=== PATIENT | female | born 1995 | race Caucasian/White ===

== ENCOUNTER 2021-01-25 07:13 | Emergency (ER) | payer BC ==
--- OUTSIDE RECORDS SUMMARY | 2021-01-25 07:18 | XMS REPORT | Continuity of Care Document ---
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 x 2.9 x 4.9 cm. The endometrial cavity is empty with a thickness of 2 mm. No uterine fibroids were seen. Nabothian cyst noted. The right ovary measures 3.5 x 2.2 x 1.7 cm and contains small follicles. Doppler flow demonstrated in the right ovary. Largest follicle measured 9 mm. The left ovary measures 4.0 x 1.9 x 1.4 cm and contains small follicles. Doppler flow demonstrated in the left ovary. Small amount of free pelvic fluid noted. IMPRESSION: Small amount of free pelvic fluid, otherwise negative pelvic sonogram. at 1015 Reported and signed by: Chidi Figueroa MD CC: John Perez MD Technologist: Dariana Simon RDUT Probe: [id number] Trnscrbd D/ (1015) [email or web address] Orig Print D/T: S: 11/15/2020 (1019) [facility] NAME: RYAN ESTRADA Radiology Department PHYS: RUDY. John Perez MD [address] : 1995 AGE: 25 SEX: F [place] [address] LOC: F.RAD PHONE #: [phone] EXAM DATE: 11/15/2020 STATUS: REG CLI FAX #: [phone] RAD NO: Page 1 Signed Report Patient Name: RYAN ESTRADA Unit No: [id number] EXAMS: CPT CODE: [id number] US TRANSVAGINAL W/PELVIS 15113 <Continued> [facility] NAME: RYAN ESTRADA Radiology Department PHYS: RUDY. John Perez MD [address] : 1995 AGE: 25 SEX: F [place] [address] LOC: F.RAD PHONE #: [phone] EXAM DATE: 11/15/2020 STATUS: REG CLI FAX #: [phone] RAD NO: Page 2 Signed Report - DUP AB/PEL/SC/LTD 2020-11-15 10:15:00 [facility] 1995 Sex: F * Patient Name: RYAN ESTRADA Unit No: [id number] EXAMS: CPT CODE: [id number] DUP AB/PEL/SC/LTD 91193 PELVIC ULTRASOUND, 11/15/2020: COMPARISON: Prior pelvic ultrasound dated September 20182020 CLINICAL HISTORY: OV CYST, PEL PAIN TECHNIQUE: Transabdominal and endovaginal scanning was performed. FINDINGS: The uterus measures 8.2 x 2.9 x 4.9 cm. The endometrial cavity is empty with a thickness of 2 mm. No uterine fibroids were seen. Nabothian cyst noted. The right ovary measures 3.5 x 2.2 x 1.7 cm and contains small follicles. Doppler flow demonstrated in the right ovary. Largest follicle measured 9 mm. The left ovary measures 4.0 x 1.9 x 1.4 cm and contains small follicles. Doppler flow demonstrated in the left ovary. Small amount of free pelvic fluid noted. IMPRESSION: Small amount of free pelvic fluid, otherwise negative pelvic sonogram. at 1015 Reported and signed by: Chidi Figueroa MD CC: John Perez MD Technologist: Dariana Simon RDMS Probe: Trnscrbd D/ (1015) [email or web address] Orig Print D/T: S: 11/15/2020 (1019) [facility] NAME: AMANDATARARYAN Radiology Department PHYS: John Carbajal MD [address] : 1995 AGE: 25 SEX: F [place] [address] LOC: F.RAD PHONE #: [phone] EXAM DATE: 11/15/2020 STATUS: REG CLI FAX #: [phone] RAD NO: Page 1 Signed Report Patient Name: RYAN ESTRADA Unit No: [id number] EXAMS: CPT CODE: [id number] DUP AB/PEL/SC/LTD 39316 <Continued> [facility] NAME: AMANDAEDDIE PACHECOA Radiology Department PHYS: John Perez MD [address] : 1995 AGE: 25 SEX: F [place] [address] LOC: AugustRAD PHONE #: [phone] EXAM DATE: 11/15/2020 STATUS: REG CLI FAX #: [phone] RAD NO: Page 2 Signed Report - US PELVIS 2020-10-03 COMPLETE 09:19:00 [facility] : 1995 Sex: F * Patient Name: RYAN ESTRADA Unit No: [id number] EXAMS: CPT CODE: [id number] US PELVIS COMPLETE 07109 PELVIC ULTRASOUND, 10/03/2020: COMPARISON: Prior pelvic ultrasound dated September 23, 2020 CLINICAL HISTORY: OVARIAN CYST , ABDOMINAL PAIN TECHNIQUE: Transabdominal and endovaginal scanning was performed. FINDINGS: The uterus measures 7.5 x 3.1 x 4.9 cm. The endometrial cavity is empty with a thickness of 2 mm. No myometrial abnormality is noted. The right ovary measures 3.0 x 1.3 x 2.2 cm and contains small follicles, the largest measuring 1 cm in size. Doppler flow is demonstrated in the right ovary. The left ovary measures 3.1 x 1.3 x 1.8 cm and contains small follicles measuring up to 7 mm in size. Doppler flow is demonstrated in the left ovary. No free fluid is evident. IMPRESSION: Small bilateral ovarian follicles. Essentially negative pelvic sonogram. at 0919 Reported and signed by: Chidi Figueroa MD CC: John Perez MD Technologist: Sofy Barajas RDMS, RVT Probe: Trnscrbd D/ (0919) [email or web address] Orig Print D/T: S: 10/03/2020 (0922) [facility] NAME: RYAN ESTRADA Radiology Department PHYS: RUDY. John Perez MD [address] : 1995 AGE: 25 SEX: F [place], [place] [address] LOC: F.RAD PHONE #: [phone] EXAM DATE: 10/03/2020 STATUS: REG CLI FAX #: [phone] RAD NO: Page 1 Signed Report Patient Name: RYAN ESTRADA Unit No: [id number] EXAMS: CPT CODE: [id number] US PELVIS COMPLETE 61054 <Continued> [facility] NAME: RYAN ESTRADA Radiology Department PHYS: RUDY. John Perez MD [address] : 1995 AGE: 25 SEX: F [place] [address] LOC: F.RAD PHONE #: [phone] EXAM DATE: 10/03/2020 STATUS: REG CLI FAX #: [phone] RAD NO: Page 2 Signed Report - US TRANSVAGINAL 2020-10-03 W/PELVIS 09:19:00 [facility] 1995 Sex: F * Patient Name: RYAN ESTRADA Unit No: [id number] EXAMS: CPT CODE: [id number] US TRANSVAGINAL W/PELVIS 84128 PELVIC ULTRASOUND, 10/03/2020: COMPARISON: Prior pelvic ultrasound dated September 23, 2020 CLINICAL HISTORY: OVARIAN CYST , ABDOMINAL PAIN TECHNIQUE: Transabdominal and endovaginal scanning was performed. FINDINGS: The uterus measures 7.5 x 3.1 x 4.9 cm. The endometrial cavity is empty with a thickness of 2 mm. No myometrial abnormality is noted. The right ovary measures 3.0 x 1.3 x 2.2 cm and contains small follicles, the largest measuring 1 cm in size. Doppler flow is demonstrated in the right ovary. The left ovary measures 3.1 x 1.3 x 1.8 cm and contains small follicles measuring up to 7 mm in size. Doppler flow is demonstrated in the left ovary. No free fluid is evident. IMPRESSION: Small bilateral ovarian follicles. Essentially negative pelvic sonogram. at 0919 Reported and signed by: Chidi Figueroa MD CC: John Perez MD Technologist: Sofy Barajas RDMS, T Probe: [id number] Trnscrbd D/ (09) [email or web address] Orig Print D/T: S: 10/03/2020 (09) [facility] NAME: RYAN ESTRADA Radiology Department PHYS: RUDY. John Carbajal MD [address] : 1995 AGE: 25 SEX: F [place] [address] LOC: Ceci.RAD PHONE #: [phone] EXAM DATE: 10/03/2020 STATUS: REG CLI FAX #: [phone] RAD NO: Page 1 Signed Report Patient Name: RYAN ESTRADA Unit No: [id number] EXAMS: CPT CODE: [id number] US TRANSVAGINAL W/PELVIS 64194 <Continued> [facility] NAME: RYAN ESTRADA Radiology Department PHYS: John Carbajal MD [address] : 1995 AGE: 25 SEX: F [place] [address] LOC: F.RAD PHONE #: [phone] EXAM DATE: 10/03/2020 STATUS: REG CLI FAX #: [phone] RAD NO: Page 2 Signed Report - DUP AB/PEL/SC/LTD 2020-10-03 09:19:00 [facility] 1995 Sex: F * Patient Name: RYAN ESTRADA Unit No: [id number] EXAMS: CPT CODE: [id number] DUP AB/PEL/SC/LTD 18244 PELVIC ULTRASOUND, 10/03/2020: COMPARISON: Prior pelvic ultrasound dated September 23, 2020 CLINICAL HISTORY: OVARIAN CYST , ABDOMINAL PAIN TECHNIQUE: Transabdominal and endovaginal scanning was performed. FINDINGS: The uterus measures 7.5 x 3.1 x 4.9 cm. The endometrial cavity is empty with a thickness of 2 mm. No myometrial abnormality is noted. The right ovary measures 3.0 x 1.3 x 2.2 cm and contains small follicles, the largest measuring 1 cm in size. Doppler flow is demonstrated in the right ovary. The left ovary measures 3.1 x 1.3 x 1.8 cm and contains small follicles measuring up to 7 mm in size. Doppler flow is demonstrated in the left ovary. No free fluid is evident. IMPRESSION: Small bilateral ovarian follicles. Essentially negative pelvic sonogram. at 0919 Reported and signed by: Chidi Figueroa MD CC: John Perez MD Technologist: Sofy Barajas RDMS, RVT Probe: Trnscrbd D/ (0919) [email or web address] Orig Print D/T: S: 10/03/2020 (0922) [facility] NAME: RYAN ESTRADA Radiology Department PHYS: RUDYRaisa John Perez MD [address] : 1995 AGE: 25 SEX: F [place], [place] [address] LOC: F.RAD PHONE #: [phone] EXAM DATE: 10/03/2020 STATUS: REG CLI FAX #: [phone] RAD NO: Page 1 Signed Report Patient Name: RYAN ESTRADA Unit No: [id number] EXAMS: CPT CODE: [id number] DUP AB/PEL/SC/LTD 95330 <Continued> [facility] NAME: RYAN ESTRADA Radiology Department PHYS: RUDYRaisa John Perez MD [address] : 1995 AGE: 25 SEX: F [place] [address] LOC: F.RAD PHONE #: [phone] EXAM DATE: 10/03/2020 STATUS: REG CLI FAX #: [phone] RAD NO: Page 2 Signed Report - US PELVIS 2020-09-13 COMPLETE 17:05:00 [facility] 1995 Sex: F * Patient Name: RYAN ESTRADA Unit No: [id number] EXAMS: CPT CODE: [id number] US PELVIS COMPLETE 66463 Exam: Pelvic Ultrasound Clinical Indication: Reevaluation of an ovarian cyst. Comparison: Pelvic ultrasound 07/11/2020 and 07/04/2020 US PELVIS Technique: Grayscale, color and Doppler transabdominal and transvaginal imaging of the pelvis was performed with standard technique. Transvaginal imaging was necessary for better evaluation of the endometrium and ovaries. FINDINGS: UTERUS/ENDOMETRIUM/C ERVIX: The anteverted uterus measures approximately 7.8 x 4.8 x 2.9 cm in size. Normal uterine contour and morphology. There is normal parenchymal echotexture. The cervix is normal, with a nabothian cyst in the low posterior cervix. The endometrium is homogeneous, measuring approximately 3 mm in thickness. OVARIES: The right ovary measures 2.6 x 1.6 x 2.4 cm and the left ovary measures 3.2 x 1.8 x 2.4 cm. There is normal ovarian follicular pattern and background parenchyma. The limited Doppler images show normal bilateral ovarian blood flow. OTHER FINDINGS: No free fluid in the pelvic cul-de-sac. IMPRESSION: Normal pelvic ultrasound. Complete resolution of the previously identified right ovarian complex/hemorrhagic cyst. SL: [id number] at 1705 Reported and signed by: Tan Menezes MD CC: John Perez MD Technologist: Dariana Simon RDMS Probe: Trnscrbd D/ (1705) [email or web address] Orig Print D/T: S: 09/13/2020 (1708) [facility] NAME: RYAN ESTRADA Radiology Department PHYS: John Yuan MD [address] : 1995 AGE: 25 SEX: F [place], [place] [address] LOC: F.RAD PHONE #: [phone] EXAM DATE: 09/13/2020 STATUS: REG CLI FAX #: [phone] RAD NO: Page 1 Signed Report Patient Name: DMITRYROBERTO CARLOSTARARYAN Unit No: [id number] EXAMS: CPT CODE: [id number] US PELVIS COMPLETE 83998 <Continued> [facility] NAME: RYAN ESTRADA Radiology Department PHYS: RUDY. John Perez MD [address] : 1995 AGE: 25 SEX: F [place] [address] LOC: AugustRAD PHONE #: [phone] EXAM DATE: 09/13/2020 STATUS: REG CLI FAX #: [phone] RAD NO: Page 2 Signed Report - DUP AB/PEL/SC/LTD 2020-09-13 17:05:00 [facility] 1995 Sex: F * Patient Name: RYAN ESTRADA Unit No: [id number] EXAMS: CPT CODE: [id number] DUP AB/PEL/SC/LTD 46996 Exam: Pelvic Ultrasound Clinical Indication: Reevaluation of an ovarian cyst. Comparison: Pelvic ultrasound 07/11/2020 and 07/04/2020 US PELVIS Technique: Grayscale, color and Doppler transabdominal and transvaginal imaging of the pelvis was performed with standard technique. Transvaginal imaging was necessary for better evaluation of the endometrium and ovaries. FINDINGS: UTERUS/ENDOMETRIUM/C ERVIX: The anteverted uterus measures approximately 7.8 x 4.8 x 2.9 cm in size. Normal uterine contour and morphology. There is normal parenchymal echotexture. The cervix is normal, with a nabothian cyst in the low posterior cervix. The endometrium is homogeneous, measuring approximately 3 mm in thickness. OVARIES: The right ovary measures 2.6 x 1.6 x 2.4 cm and the left ovary measures 3.2 x 1.8 x 2.4 cm. There is normal ovarian follicular pattern and background parenchyma. The limited Doppler images show normal bilateral ovarian blood flow. OTHER FINDINGS: No free fluid in the pelvic cul-de-sac. IMPRESSION: Normal pelvic ultrasound. Complete resolution of the previously identified right ovarian complex/hemorrhagic cyst. SL: [id number] at 1705 Reported and signed by: Tan Menezes MD CC: John Perez MD Technologist: Dariana Simon RDMS Probe: Trnscrbd D/ (1705) [email or web address] Orig Print D/T: S: 09/13/2020 (1708) [facility] NAME: RYAN ESTRADA Radiology Department PHYS: John Yuan MD [address] : 1995 AGE: 25 SEX: F [place] [address] LOC: F.RAD PHONE #: [phone] EXAM DATE: 09/13/2020 STATUS: REG CLI FAX #: [phone] RAD NO: Page 1 Signed Report Patient Name: RYAN ESTRADA Unit No: [id number] EXAMS: CPT CODE: [id number] DUP AB/PEL/SC/LTD 13544 <Continued> [facility] NAME: RYAN ESTRADA Radiology Department PHYS: RUDY. John Perez MD [address] : 1995 AGE: 25 SEX: F [place] [address] LOC: F.RAD PHONE #: [phone] EXAM DATE: 09/13/2020 STATUS: REG CLI FAX #: [phone] RAD NO: Page 2 Signed Report - US TRANSVAGINAL 2020-09-13 W/PELVIS 17:05:00 [facility] 1995 Sex: F * Patient Name: RYAN ESTRADA Unit No: [id number] EXAMS: CPT CODE: [id number] US TRANSVAGINAL W/PELVIS 50134 Exam: Pelvic Ultrasound Clinical Indication: Reevaluation of an ovarian cyst. Comparison: Pelvic ultrasound 07/11/2020 and 07/04/2020 US PELVIS Technique: Grayscale, color and Doppler transabdominal and transvaginal imaging of the pelvis was performed with standard technique. Transvaginal imaging was necessary for better evaluation of the endometrium and ovaries. FINDINGS: UTERUS/ENDOMETRIUM/C ERVIX: The anteverted uterus measures approximately 7.8 x 4.8 x 2.9 cm in size. Normal uterine contour and morphology. There is normal parenchymal echotexture. The cervix is normal, with a nabothian cyst in the low posterior cervix. The endometrium is homogeneous, measuring approximately 3 mm in thickness. OVARIES: The right ovary measures 2.6 x 1.6 x 2.4 cm and the left ovary measures 3.2 x 1.8 x 2.4 cm. There is normal ovarian follicular pattern and background parenchyma. The limited Doppler images show normal bilateral ovarian blood flow. OTHER FINDINGS: No free fluid in the pelvic cul-de-sac. IMPRESSION: Normal pelvic ultrasound. Complete resolution of the previously identified right ovarian complex/hemorrhagic cyst. SL: [id number] at 1705 Reported and signed by: Tan Menezes MD CC: John Perez MD Technologist: Dariana Simon RDUT Probe: [id number] Trnscrbd D/ (9878) [id number] Orig Print D/T: S: 09/13/2020 (2932) [facility] NAME: RYAN ESTRADA Radiology Department PHYS: John Perez MD [address] : 1995 AGE: 25 SEX: F [place] [address] LOC: AugustRAD PHONE #: [phone] EXAM DATE: 09/13/2020 STATUS: REG CLI FAX #: [phone] RAD NO: Page 1 Signed Report Patient Name: RYAN ESTRADA Unit No: [id number] EXAMS: CPT CODE: [id number] US TRANSVAGINAL W/PELVIS 18221 <Continued> [facility] NAME: RYAN ESTRADA Radiology Department PHYS: John Perez MD [address] : 1995 AGE: 25 SEX: F [place], [place] [address] LOC: AugustRAD PHONE #: [phone] EXAM DATE: 09/13/2020 STATUS: REG CLI FAX #: [phone] RAD NO: Page 2 Signed Report CHLAMYDIA GC DNA BY PCR 2020-07-18 13:24:00 Test Item Value Reference Range Interpretation Comme nts C. TRACHOMATIS DNA BY PCR (test Negative Negative code = CHLAMTDNA) N. GONORRHOEAE DNA BY PCR (test Negative Negative Performed At: [facility] [place] code = NGONORDNA) [id number] [place], [place] [id number] Huang MD Ph :[phone] AB HERPES SIMPLEX 1 2 [id number] 14:28:00 Test Item Value Reference Range Interpretation Comments AB HERPES SIMPLEX 1 <0.91 Ratio 0.00-0.90 2 IGM (test code = Negative [id number]) <0.91 Equivocal 0.91 - 1.09 Positiv e >1.09Performed At: [facility] [id number] [place], [place] [id number] isabela Pike MD Ph:[phone] AB HERPES SIMPLEX 1 [id number] 14:28:00 Test Item Value Reference Range Interpretation Comments AB HERPES SIMPLEX 1 <0.91 index 0.00-0.90 IGG (test code = N egative [id number]) <0.91 Equivocal 0.91 - 1.09 Positiv e >1.09 Note: Ne gative indicates no antibodies dete cted to HSV-1. Equivoca l may suggest early infection. If clinically appropriate, re test at later date. Pos itive indicates antib odies detected to HSV-1.Performed At: [facility] [address] [id number] isabela Pike MD Ph:[phone] AB HERPES SIMPLEX 2 [id number] 14:28:00 Test Item Value Reference Range Interpretation Comments AB HERPES SIMPLEX 2 2.64 index 0.00-0.90 A IGG (test code = Ne gative [id number]) <0.91 Equivocal 0.91 - 1.09 Positive >1.09 Note: Neg ative indicates no an tibodies detected to HSV -2. Equivocal may s uggest early infection . If clinically appr opriate, retest at later date. 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 AB HERPES SIMPLEX 1 2 [id number] 12:45:00 Test Item Value Reference Range Interpretation Comments AB HERPES SIMPLEX 1 2 IGM (test code = [id number]) AB HERPES SIMPLEX 1 [id number] 12:45:00 Test Item Value Reference Range Interpretation Comments AB HERPES SIMPLEX 1 <0.91 index 0.00-0.90 IGG (test code = N egative [id number]) <0.91 Equivocal 0.91 - 1.09 Positiv e >1.09 Note: Ne gative indicates no antibodies dete cted to HSV-1. Equivoca l may suggest early infection. If clinically appropriate, re test at later date. Pos itive indicates antib odies detected to HSV-1.Performed At: [facility] [address] [id number] isabela Pike MD Ph:[phone] AB HERPES SIMPLEX 2 [id number] 12:45:00 Test Item Value Reference Range Interpretation Comments AB HERPES SIMPLEX 2 2.64 index 0.00-0.90 A IGG (test code = Ne gative [id number]) <0.91 Equivocal 0.91 - 1.09 Positive >1.09 Note: Neg ative indicates no an tibodies detected to HSV -2. Equivocal may s uggest early infection . If clinically appr opriate, retest at later date. 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 - CT ABD PELVIS [id number] 08:32:00 [facility] 1995 Sex: F Patient Name: RYAN ESTRADA Unit No: [id number] EXAMS: CPT CODE: [id number] CT ABD PELVIS W/CONT [address] CT ABDOMEN WITH CONTRAST AND CT PELVIS WITH CONTRAST, 07/11/2020 TECHNICAL FACTORS: Contiguous axial sections were obtained through the abdomen and pelvis after oral contrast ingestion and with IV contrast administration. COMPARISON: None CLINICAL HISTORY: CODE SEPSIS One or more of the following dose techniques were utilized; automated exposure control, adjustment of the mA and/or kV according to patient size, and/or utilization of iterative reconstruction technique. DLP: 197.23 mGy-cm. Lung bases were clear. The liver is normal in attenuation.No hepatic lesions are seen. The spleen, pancreas, and adrenals are within normal limits. The gallbladder demonstrates no radiopaque gallstones or pericholecystic fluid. Kidneys demonstrate no hydronephrosis, renal masses or opaque renal calculi. The abdominal aorta is normal in caliber. Assessment of bowel loops is limited due to poor opacification of GI contrast agent. There does appear to be air within the appendiceal lumen in the right lower quadrant. No definite CT e vidence of appendicitis. Uterus and ovaries are present. There is questionable trace amount of free fluid in the pelvis. There is posterior disc protrusion with partial calcification of thedisc at L5-S1. IMPRESSION: [facility] NAME: EDDIE ESTRADA Radiology Department PHYS: CANAL. Antony Stefani Mchugh MD [address] : 1995 AGE: 24 SEX: F [place], [place] [address] LOC: AugustERS PHONE #: [phone] EXAM DATE: 07/11/2020 STATUS: REG ER FAX #: [phone] RAD NO: Page 1Signed Report 1 Patient Name: RYAN ESTRADA Unit No: [id number] EXAMS: CPT CODE: [id number] CT ABD PELVIS W/CONT 54267 <Continued> Suspect trace amount of free pelvic fluid. No definite acute abnormality identified. L5-S1 degenerative disc disease. at 0832 Reported and signed by: Chidi Figueroa MD CC: Stefani Mchugh MD; John Perez MD Technologist: Homar Boone, RT, CT CTDI: 4.01 DLP: 197.23 Trnscrbd D/ (0832) [email or web address] [facility] NAME: RYAN ESTRADA Radiology Department PHYS: CANAL.Lolly Stefani Moreira MD [address] : 1995 AGE: 24 SEX: F [place], [place] [address] LOC: AugustERS PHONE #: [phone] EXAM DATE: 07/11/2020 STATUS: REG ER FAX #: [phone] RAD NO: Page 2 Signed Report 1 PatientName: RYAN ESTRADA Unit No: [id number] EXAMS: CPT CODE: [id number] CT ABD PELVIS W/CONT 67728 <Continued> Orig Print D/T: S: 07/11/2020 (0835) [facility] NAME: RYAN ESTRADA Radiology Department PHYS: CANAL. Stefani Moreira MD [address] : 1995 AGE: 24 SEX: F [place], [place] [address] LOC: BARRY PHONE #: [phone] EXAM DATE: 07/11/2020 STATUS: RACHEL ER FAX#: [phone] RAD NO: Page 3 Signed Report 1LACTIC [id number] 07:57:00 Test Item Value Reference Range Interpretation Comments LACTIC ACID (test code = LACT) 0.8 MMOL/L 0.5-2.2 N [id number] 07:14:00 Test Item Value Reference Range Interpretation Comments TROPONIN-I (test code = TROPI) <0.017 ng/mL <0.056 N PROTHROMBIN [id number] 07:13:00 Test Item Value Reference Range Interpretation Comments PROTHROMBIN TIME PATIENT (test code 12.0 secs 10.4-12.4 N = PTP) IS PATIENT ON ANTICOAGULANTS ? NINTERNATIONAL NORMAL [id number] 07:13:00 Test Item Value Reference Range Interpretation Comments INTERNATIONAL NORMAL 1.11 The INR is to be used RATIO (test code = INR) only for monitoring oral anticoagulantth erapy. INDICATION INR VALUE 1. Prophylaxis inc luding high risk fong rgery 2.0 - 2.52. Deep venous thr ombosis. Pulmonary em bolism. Atrial fibrilla tion or bioprostheti c heart valves 2.0 - 3.03. Mechanical hear t valves or recurren t systemic emboli sm. 3.0 - 3.5 IS PATIENT ON ANTICOAGULANTS ? NTHROMBOPLASTIN TIME [id number] 07:13:00 Test Item Value Reference Range Interpretation Comments THROMBOPLASTIN TIME PARTIAL (test 37.2 secs 22-38 N code = PTT) IS PATIENT ON ANTICOAGULANTS ? N- DUP AB/PEL/SC/[id number] 06:49:00 [facility] 1995 Sex: F Patient Name: RYAN ESTRADA Unit No: [id number] EXAMS: CPT CODE: [id number] DUP AB/PEL/SC/LTD 31553 STUDY: - US TRANSVAGINAL W/PELVIS, - US PELVIS COMPLETE, - DUP AB/PEL/SC/LTD 07/11/2020 5:21 AM Ordering Physician: Kendrick Al MD Patient Name: RYAN ESTRADAMR: [id number] : 1995; Age: 24 years y/o Female Clinical Indication: Generalized abdominal pain. Nausea. History of hemorrhagic ovarian cyst. Comparison: Pelvic ultrasound 07/04/2020 TRANSABDOMINAL AND TRANSVAGINAL PELVIC ULTRASOUND: Technique: Grayscale, color, and Doppler transabdominal and transvaginal imaging of the pelvis was performed with standard technique. TRANSABDOMINAL PELVIC ULTRASOUND: UTERUS: Normal size uterus measuring 8.0 x 3.4 x 4.5 cm without focal myometrial lesion. Normal thickness endometrial stripe measuring 8 mm without intrauterine gestational sac or fluid collection. RIGHT OVARY AND ADNEXA: General: Normal size right ovary measuring 3.0 x 2.2 x 2.2 cm containing a small 1.4 cm simple to minimally complex cyst. Doppler: Normal low resistance arterial and venous blood flow is demonstrated. LEFT OVARY AND ADNEXA: General: Normal size left ovary measuring 3.1 x 1.4 x 2.1 cm containing a subcentimeter follicle. Doppler: Normal low resistance arterial and venous blood flow is demonstrated. URINARY BLADDER: Normal for degree of distention present containing anechoic urine. FLUID: None. OTHER FINDINGS: None. TRANSVAGINAL PELVIC ULTRASOUND: Endovaginal ultrasound was performed to better visualize the endometrial stripe and the adnexal regions. UTERUS: Normal size uterus similar to transvesical images without focal myometrial lesion. Normal thickness endometrial stripe measuring 7 mm without gestational sac or fluid collection. The [facility] NAME: RYAN ESTRADA Radiology Department PHYS: Kendrick Ruiz [address] : 1995 AGE: 24 SEX: F [place], [place] [address] LOC: [facility] PHONE #: [phone] EXAM DATE:07/11/2020 STATUS: REG ER FAX #: [phone] RAD NO: Page 1 Signed Report (CONTINUED) Patient Name: RYAN ESTRADA Unit No: [id number] EXAMS: CPT CODE: [id number] DUP AB/PEL/SC/LTD 01610 <Continued> RIGHT OVARY AND ADNEXA: General: Normal size right ovary measuring 3.9 x 2.5 x 2.5 cm containing subcentimeter follicles. Decreasing size complex cyst measuring 1.1 cm while previously measuring 3.1 cm characterized by mildly thickened wall and heterogeneous internal echoes. Doppler: Normal low resistance arterial and venous blood flow is demonstrated. LEFT OVARY AND ADNEXA: General: Normal size left ovary measuring 3.9 x 2.1 x 2.0 cm containing scattered subcentimeter follicles. Doppler: Normal low resistance arterial and venous blood flow is demonstrated. URINARY BLADDER: Decompressed. FLUID: Trace free pelvic fluid. OTHER FINDINGS: None. IMPRESSION: Decreasingsize complex right ovarian cyst measuring 1.1 cm suspicious for a hemorrhagic cyst. SL: TPAINTER-H at 0649 Reported and signed by: Bhavin Chavez MD CC: Kendrick Al MD; John Perez MD Technologist: OMAR MANNING RDMS, T Probe: Trnscrbd D/ (0649) [email or web address] Orig Print D/T: S: 07/11/2020 (0652) [facility] NAME: RYAN ESTRADA Radiology Department PHYS: Kendrick Ruiz [address] : 1995 AGE: 24 SEX: F [place], [place] [address] LOC: [facility] PHONE #: [phone] EXAM DATE: 07/11/2020 STATUS: REG ER FAX #: [phone] RAD NO: Page 2 Signed Report Patient Name: RYAN ESTRADA Unit No: [id number] EXAMS: CPT CODE: [id number] DUP AB/PEL/SC/LTD 11550 <Continued> [facility] NAME: RYAN ESTRADA Radiology Department PHYS: Kendrick Ruiz [address] : 1995 AGE: 24 SEX: F [place], [place] [address] LOC: AugustERS PHONE #: [phone] EXAM DATE: 07/11/2020 STATUS: REG ER FAX #: [phone] RAD NO: Page 3 Signed Report- US TRANSVAGINAL [id number] 06:49:00 [facility] : 1995 Sex: F Patient Name: RYAN ESTRADA Unit No: [id number] EXAMS: CPT CODE: [id number] US TRANSVAGINAL W/PELVIS 78002 STUDY: - US TRANSVAGINAL W/PELVIS, - US PELVIS COMPLETE, - DUP AB/PEL/SC/LTD 07/11/2020 5:21 AM Ordering Physician: Kendrick Al MD Patient Name: RYAN ESTRADAMR: [id number] : 1995; Age: 24 years y/o Female Clinical Indication: Generalized abdominal pain. Nausea. History of hemorrhagic ovarian cyst. Comparison: Pelvic ultrasound 07/04/2020 TRANSABDOMINAL AND TRANSVAGINAL PELVIC ULTRASOUND: Technique: Grayscale, color, and Doppler transabdominal and transvaginal imaging of the pelvis was performed with standard technique. TRANSABDOMINAL PELVIC ULTRASOUND: UTERUS: Normal size uterus measuring 8.0 x 3.4 x 4.5 cm without focal myometrial lesion. Normal thickness endometrial stripe measuring 8 mm without intrauterine gestational sac or fluid collection. RIGHT OVARY AND ADNEXA: General: Normal size right ovary measuring 3.0 x 2.2 x 2.2 cm containing a small 1.4 cm simple to minimally complex cyst. Doppler: Normal low resistance arterial and venous blood flow is demonstrated. LEFT OVARY AND ADNEXA: General: Normal size left ovary measuring 3.1 x 1.4 x 2.1 cm containing a subcentimeter follicle. Doppler: Normal low resistance arterial and venous blood flow is demonstrated. URINARY BLADDER: Normal for degree of distention present containing anechoic urine. FLUID: None. OTHER FINDINGS: None. TRANSVAGINAL PELVIC ULTRASOUND: Endovaginal ultrasound was performed to better visualize the endometrial stripe and the adnexal regions. UTERUS: Normal size uterus similar to transvesical images without focal myometrial lesion. Normal thickness endometrial stripe measuring 7 mm without gestational sac or fluid collection. The [facility] NAME: EDDIE ESTRADAA Radiology Department PHYS: Kendrick Ruiz [address] : 1995 AGE: 24 SEX: F [place], [place] [address] LOC: [place] PHONE #: [phone] EXAM DATE:07/11/2020 STATUS: REG ER FAX #: [phone] RAD NO: Page 1 Signed Report (CONTINUED) Patient Name: RYAN ESTRADA Unit No: [id number] EXAMS: CPT CODE: [id number] US TRANSVAGINAL W/PELVIS 49515 <Continued> RIGHT OVARY AND ADNEXA: General: Normal size right ovary measuring 3.9 x 2.5 x 2.5 cm containing subcentimeter follicles. Decreasing size complex cyst measuring 1.1 cm while previously measuring 3.1 cm characterized by mildly thickened wall and heterogeneous internal echoes. Doppler: Normal low resistance arterial and venous blood flow is demonstrated. LEFT OVARY AND ADNEXA: General: Normal size left ovary measuring 3.9 x 2.1 x 2.0 cm containing scattered subcentimeter follicles. Doppler: Normal low resistance arterial and venous blood flow is demonstrated. URINARY BLADDER: Decompressed. FLUID: Trace free pelvic fluid. OTHER FINDINGS: None. IMPRESSION: Decreasingsize complex right ovarian cyst measuring 1.1 cm suspicious for a hemorrhagic cyst. SL: TPAINTER-H at 0649 Reported and signed by: Bhavin Chavez MD CC: Kendrick Al MD; John Perez MD Technologist: OMAR MANNING RDUT, RVT Probe: [id number] Trnscrbd D/ (0649) [email or web address] Orig Print D/T: S: 07/11/2020 (0652) [facility] NAME: RYAN ESTRADA Radiology Department PHYS: Kendrick Ruiz [address] : 1995 AGE: 24 SEX: F [place] [address] [facility] #: [phone] EXAM DATE: 07/11/2020 STATUS: REG ER FAX #: [phone] RAD NO: Page 2 Signed Report Patient Name: RYAN ESTRADA Unit No: [id number] EXAMS: CPT CODE: [id number] US TRANSVAGINAL W/PELVIS 77285 <Continued> [facility] NAME: RYAN ESTRADA Radiology Department PHYS: Kendrick Ruiz [address] : 1995 AGE: 24 SEX: F [place] [address] LOC: AugustERS PHONE #: [phone] EXAM DATE: 07/11/2020 STATUS: REG ER FAX #: [phone] RAD NO: Page 3 Signed Report- US PELVIS [id number] 06:49:00 [facility] : 1995 Sex: F Patient Name: RYAN ESTRADA Unit No: [id number] EXAMS: CPT CODE: [id number] US PELVIS COMPLETE 52298 STUDY: - US TRANSVAGINAL W/PELVIS, - US PELVIS COMPLETE, - DUP AB/PEL/SC/LTD 07/11/2020 5:21 AM Ordering Physician: Kendrick Al MD Patient Name: RYAN ESTRADAMR: [id number] : 1995; Age: 24 years y/o Female Clinical Indication: Generalized abdominal pain. Nausea. History of hemorrhagic ovarian cyst. Comparison: Pelvic ultrasound 07/04/2020 TRANSABDOMINAL AND TRANSVAGINAL PELVIC ULTRASOUND: Technique: Grayscale, color, and Doppler transabdominal and transvaginal imaging of the pelvis was performed with standard technique. TRANSABDOMINAL PELVIC ULTRASOUND: UTERUS: Normal size uterus measuring 8.0 x 3.4 x 4.5 cm without focal myometrial lesion. Normal thickness endometrial stripe measuring 8 mm without intrauterine gestational sac or fluid collection. RIGHT OVARY AND ADNEXA: General: Normal size right ovary measuring 3.0 x 2.2 x 2.2 cm containing a small 1.4 cm simple to minimally complex cyst. Doppler: Normal low resistance arterial and venous blood flow is demonstrated. LEFT OVARY AND ADNEXA: General: Normal size left ovary measuring 3.1 x 1.4 x 2.1 cm containing a subcentimeter follicle. Doppler: Normal low resistance arterial and venous blood flow is demonstrated. URINARY BLADDER: Normal for degree of distention present containing anechoic urine. FLUID: None. OTHER FINDINGS: None. TRANSVAGINAL PELVIC ULTRASOUND: Endovaginal ultrasound was performed to better visualize the endometrial stripe and the adnexal regions. UTERUS: Normal size uterus similar to transvesical images without focal myometrial lesion. Normal thickness endometrial stripe measuring 7 mm without gestational sac or fluid collection. [facility] NAME: RYAN ESTRADA Radiology Department PHYS: Kendrick Ruiz [address] : 1995 AGE: 24 SEX: F [place], [place] [address] LOC: [facility] PHONE #: [phone] EXAM DATE:07/11/2020 STATUS: REG ER FAX #: [phone] RAD NO: Page 1 Signed Report (CONTINUED) Patient Name: RYAN ESTRADA Unit No: [id number] EXAMS: CPT CODE: [id number] US PELVIS COMPLETE 04223 <Continued> RIGHT OVARY AND ADNEXA: General: Normal size right ovary measuring 3.9 x 2.5 x 2.5 cm containing subcentimeter follicles. Decreasing size complex cyst measuring 1.1 cm while previously measuring 3.1 cm characterized by mildly thickened wall and heterogeneous internal echoes. Doppler: Normal low resistance arterial and venous blood flow is demonstrated. LEFT OVARY AND ADNEXA: General: Normal size left ovary measuring 3.9 x 2.1 x 2.0 cm containing scattered subcentimeter follicles. Doppler: Normal low resistance arterial and venous blood flow is demonstrated. URINARY BLADDER: Decompressed. FLUID: Trace free pelvic fluid. OTHER FINDINGS: None. IMPRESSION: Decreasingsize complex right ovarian cyst measuring 1.1 cm suspicious for a hemorrhagic cyst. SL: TPAINTER-H at 0649 Reported and signed by: Bhavin Chavez MD CC: Kendrick Al MD; John Perez MD Technologist: OMAR MANNING RDMS, RVT Probe: Trnscrbd D/ (0649) [id number] Orig Print D/T: S: 07/11/2020 (0652) [facility] NAME: RYAN ESTRADA Radiology Department PHYS: Kendrick Ruiz [address] : 1995 AGE: 24 SEX: F [place], [place] [address] LOC: [facility] PHONE #: [phone] EXAM DATE: 07/11/2020 STATUS: REG ER FAX #: [phone] RAD NO: Page 2 Signed Report Patient Name: RYAN ESTRADA Unit No: [id number] EXAMS: CPT CODE: [id number] US PELVIS COMPLETE 08104 <Continued> [facility] NAME: RYAN ESTRADA Radiology Department PHYS: Kendrick Ruiz [address] : 1995 AGE: 24 SEX: F [place], [place] [address] LOC: [place] PHONE #: [phone] EXAM DATE: 07/11/2020 STATUS: REG ER FAX #: [phone] RAD NO: Page 3 Signed Report COMPREHENSIVE METABOLIC [id number] 05:15:00 Test Item Value Reference Range Interpretation Comments SODIUM (test code = NA) 138 mEq/L 135-145 N POTASSIUM (test code = K) 3.7 mEq/L 3.5-5.0 N CHLORIDE (test code = CL) 102 mEq/L 100-115 N CARBON DIOXIDE (test code = CO2) 27 mEq/L 22-31 N ANION GAP (test code = GAP) 13.00 10-20 N GLUCOSE (test code = GLU) 107 mg/dL 65-110 N BLOOD UREA NITROGEN (test code = 9 mg/dL 7-18 N BUN) GLOMERULAR FILTRATION RATE (test 103 ml/min >60 N code = GFR) CREATININE (test code = CREAT) 0.7 mg/dL 0.5-1.0 N TOTAL PROTEIN (test code = PROT) 7.6 gm/dL 6.3-8.2 N ALBUMIN (test code = ALB) 4.1 gm/dL 3.4-4.8 N CALCIUM (test code = CA) 8.7 mg/dL 8.4-10.2 N BILIRUBIN TOTAL (test code = BILT) 0.3 mg/dL 0.2-1.0 N SGOT/AST (test code = AST) 20 units/L 15-37 N SGPT/ALT (test code = ALT) 21 units/L 12-78 N ALKALINE PHOSPHATASE TOTAL (test 58 units/L 46-116 N code = ALKP) DRUGS OF ABUSE [id number] 05:08:00 Test Item Value Reference Range Interpretation Comments UR COCAINE (test code = NEGATIVE NEGATIVE DETE CTION CUT OFF: COCAU) 150 ng/mL UR CANNABINOIDS (test POSITIVE NEGATIVE A RESULT S CALLED TO code = CANU) ETTA.READ BACK & CONFIRMED? Y.BY F.LAB.LG0 09/25 0507. DETECTION CUT OFF: 50 ng/mL UR AMPHETAMINE (test code NEGATIVE NEGATIVE DE TECTION CUT OFF: = AMPHU) 500 ng/mL UR BARBITURATE QUAL (test NEGATIVE NEGATIVE DE TECTION CUT OFF: code = BARBQLU) 200 ng/mL UR BENZODIAZEPINE (test POSITIVE NEGATIVE A RESU LTS CALLED TO code = BENZU) ETTA.READ BACK & CONFIRMED? Y.BY F.LAB.LG0 09/25 0507. DETECTION CUT OFF: 150 ng/mL UR OPIATES QUAL (test NEGATIVE NEGATIVE DETECT ION CUT OFF: code = OPIAQLU) 100 ng/mL UR PHENCYCLIDINE (PCP) NEGATIVE NEGATIVE DETEC TION CUT OFF: (test code = PHENCU) 25 ng/m L UA RFLX MICR CULT IF [id number] 05:02:00 Test Item Value Reference Range Interpretation Comments UA COLOR (test code = COLU) YELLOW YELLOW UA APPEARANCE (test code = CLEAR CLEAR APPU) UA GLUCOSE DIPSTICK (test code NEGATIVE NEG = DGLUU) UA BILIRUBIN DIPSTICK (test NEGATIVE NEG code = BILU) UA KETONE DIPSTICK (test code NEGATIVE NEG = KETU) UA SPECIFIC GRAVITY (test code 1.013 1.001-1.035 N = SGU) UA BLOOD DIPSTICK (test code = 1+ NEG A BRIANNE) UA PH DIPSTICK (test code = 5.0 5-9 JESSICA) UA PROTEIN DIPSTICK (test code NEGATIVE NEG = PROU) UA UROBILINIOGEN DIPSTICK NEGATIVE mg/dL NEG (test code = URO) UA NITRITE DIPSTICK (test code NEG NEG = MUMTAZ) UA LEUKOCYTE ESTERASE DIPSTICK NEG NEG (test code = LEUU) UA WBC (test code = WBCU) 0-2 #/hpf NONE SEEN UA RBC (test code = RBCU) 0-2 #/hpf NONE SEEN UA EPITHELIAL CELLS (test code RARE #/HPF RARE-FEW = EPIU) UA BACTERIA (test code = BACU) RARE /HPF RARE-FEW UA MUCUS (test code = MUCU) RARE NONE SEEN Indication for culture: Suprapubic PainSpecimen Description: CLEAN CATCHUR HCG [id number] 05:02:00 Test Item Value Reference Range Interpretation Comments UR HCG QUAL (test NEGATIVE 1. Very di lute urine code = HCGQLU) specimens, as indicated by a lowspecific g ravity, may not contain rep resentative levels ofhCG. 2 . False negative result s may occur when the levels of hCGare below the sensi tivity level of the test. If is still suspec hetal, a first morningurine sp ecimen should be colle cted 48 hours later and tested. Indication for culture: Suprapubic PainSpecimen Description: CLEAN CATCHUA RFLX MICR CULT IF [id number] 04:58:00 Test Item Value Reference Range Interpretation Comments UA COLOR (test code = COLU) YELLOW UA APPEARANCE (test code = APPU) CLEAR UA GLUCOSE DIPSTICK (test code = NEGATIVE DGLUU) UA BILIRUBIN DIPSTICK (test code = NEGATIVE BILU) UA KETONE DIPSTICK (test code = KETU) NEGATIVE UA SPECIFIC GRAVITY (test code = SGU) 1.001-1.035 UA BLOOD DIPSTICK (test code = BRIANNE) NEGATIVE UA PH DIPSTICK (test code = JESSICA) 5-9 UA PROTEIN DIPSTICK (test code = PROU) NEGATIVE UA UROBILINIOGEN DIPSTICK (test code = mg/dL NEG URO) UA NITRITE DIPSTICK (test code = MUMTAZ) NEGATIVE UA LEUKOCYTE ESTERASE DIPSTICK (test NEG code = LEUU) UA WBC (test code = WBCU) #/hpf NONE SEEN UA EPITHELIAL CELLS (test code = EPIU) #/HPF RARE-FEW Indication for culture: Suprapubic PainSpecimen Description: CLEAN CATCHUR HCG [id number] 04:58:00 Test Item Value Reference Range Interpretation Comments UR HCG QUAL (test NEGATIVE 1. Very di lute urine code = HCGQLU) specimens, as indicated by a lowspecific g ravity, may not contain rep resentative levels ofhCG. 2 . False negative result s may occur when the levels of hCGare below the sensi tivity level of the test. If is still suspec hetal, a first morningurine sp ecimen should be colle cted 48 hours later and tested. Indication for culture: Suprapubic PainSpecimen Description: CLEAN CATCHCBC W/AUTO [id number] 04:57:00 Test Item Value Reference Range Interpretation Comments WHITE BLOOD CELL (test code = WBC) 15.8 K/mm3 6.5-12.3 H RED BLOOD CELL (test code = RBC) 4.15 M/mm3 3.51-4.69 N HEMOGLOBIN (test code = HGB) 11.7 g/dL 10.1-13.8 N HEMATOCRIT (test code = HCT) 36.3 % 32.5-41.8 N MEAN CELL VOLUME (test code = MCV) 87.5 fL 84.6-96.6 N MEAN CELL HGB (test code = MCH) 28.2 pg 27.3-33.9 N MEAN CELL HGB CONCETRATION (test 32.2 gm/dL 32.0-34.2 N code = MCHC) RED CELL DISTRIBUTION WIDTH (test 15.5 % 12.2-16.3 N code = RDW) PLATELET COUNT (test code = PLT) 338 K/mm3 134-363 N MEAN PLATELET VOLUME (test code = 9.5 fL 9.2-12.7 N MPV) NEUTROPHIL % (test code = NT%) 77.5 % 57.9-77.3 H LYMPHOCYTE % (test code = LY%) 14.8 % 14.5-29.7 N MONOCYTE % (test code = MO%) 6.5 % 3.6-10.2 N EOSINOPHIL % (test code = EO%) 0.5 % 0.0-3.0 N BASOPHIL % (test code = BA%) 0.4 % 0.1-0.9 N NEUTROPHIL # (test code = NT#) 12.2 K/mm3 LYMPHOCYTE # (test code = LY#) 2.3 K/mm3 MONOCYTE # (test code = MO#) 1.0 K/mm3 EOSINOPHIL # (test code = EO#) 0.08 K/mm3 BASOPHIL # (test code = BA#) 0.1 K/mm3 RBC MORPHOLOGY REQUIRED (test code NORMAL NORMAL = RBCM) PLATELET MORPHOLOGY REQUIRED (test NORMAL NORMAL code = PLTMR) - US PELVIS [id number] 11:43:00 [facility] 1995 Sex: F Patient Name: RYAN ESTRADA Unit No: [id number] EXAMS: CPT CODE: [id number] US PELVIS COMPLETE 12358 PELVIC ULTRASOUND, 07/04/2020: COMPARISON: None CLINICAL HISTORY: RLQABD PAIN TECHNIQUE: Transabdominal and endovaginal scanning was performed. FINDINGS: The uterus measures 7.6 x 4.1 x 4.8 cm. The endometrial cavity is empty with a thickness of 8 mm. No uterine fibroids were seen. There was a 9 mm nabothian cyst in the cervix. The right ovary measures4.3 x 3.5 x 3.6 cm and contains a 3.1 x 3.0 x 3.1 cm complex cyst, most consistent with hemorrhagiccyst. Doppler flow is demonstrated in the right ovary. The left ovary measures 2.8 x 1.9 x 1.8 cm and appears normal. Doppler flow is demonstrated in the left ovary. No free fluid is evident. IMPRESSION: 3.1 cm complex right ovarian cyst, likely representing hemorrhagic cyst. at 1143 Reported and signed by: Chidi Figueroa MD CC: John Perez MD Technologist: Kelsey Thomas RDMS Probe: Trnscrbd D/ (1143) t.AJ13 Orig Print D/T: S: 07/04/2020 (1146) [facility] NAME: RYAN ESTRADA Radiology Department PHYS: RUDYRaisa John Perez MD [address] : 1995 AGE: 24 SEX: F [place], [place] [address] LOC: August[facility] PHONE #: [phone] EXAM DATE: 07/04/2020 STATUS: REG CLI FAX #: [phone] RAD NO: Page 1 Signed Report Patient Name: RYAN ESTRADA Unit No: [id number] EXAMS: CPT CODE: [id number] US PELVIS COMPLETE 78144 <Continued> [facility] NAME: RYAN ESTRADA Radiology Department PHYS: RUDYRaisa Antony John Perez MD [address] : 1995 AGE: 24 SEX: F [place], [place] [address] LOC: AugustRAD PHONE #: [phone] EXAM DATE: 07/04/2020 STATUS: REG CLI FAX #: [phone] RAD NO: Page 2 Signed Report- DUP AB/PEL/SC/[id number] 11:43:00 [facility] 1995 Sex: F Patient Name: RYAN ESTRADA Unit No: [id number] EXAMS: CPT CODE: [id number] DUP AB/PEL/SC/LTD 80977 PELVIC ULTRASOUND, 07/04/2020: COMPARISON: None CLINICAL HISTORY: RLQABD PAIN TECHNIQUE: Transabdominal and endovaginal scanning was performed. FINDINGS: The uterus measures 7.6 x 4.1 x 4.8 cm. The endometrial cavity is empty with a thickness of 8 mm. No uterine fibroids were seen. There was a 9 mm nabothian cyst in the cervix. The right ovary measures4.3 x 3.5 x 3.6 cm and contains a 3.1 x 3.0 x 3.1 cm complex cyst, most consistent with hemorrhagiccyst. Doppler flow is demonstrated in the right ovary. The left ovary measures 2.8 x 1.9 x 1.8 cm and appears normal. Doppler flow is demonstrated in the left ovary. No free fluid is evident. IMPRESSION: 3.1 cm complex right ovarian cyst, likely representing hemorrhagic cyst. at 1143 Reported and signed by: Chidi Figueroa MD CC: John Perez MD Technologist: Kelsey Thomas RDMS Probe: Trnscrbd D/ (1143) [email or web address] Orig Print D/T: S: 07/04/2020 (1146) [facility] NAME: AMANDAEDDIE PACHECOA Radiology Department PHYS: John Perez MD [address] : 1995 AGE: 24 SEX: F [place] [address] LOC: Ceci.RAD PHONE #: [phone] EXAM DATE: 07/04/2020 STATUS: REG CLI FAX #: [phone] RAD NO: Page 1 Signed Report Patient Name: RYAN ESTRADA Unit No: [id number] EXAMS: CPT CODE: [id number] DUP AB/PEL/SC/LTD 41217 <Continued> [facility] NAME: EDDIE ESTRADAA Radiology Department PHYS: John Yuan MD [address] : 1995 AGE: 24 SEX: F [place] [address] LOC: Ceci[facility]RAD PHONE #: [phone] EXAM DATE: 07/04/2020 STATUS: REG CLI FAX #: [phone] RAD NO: Page 2 Signed Report- US TRANSVAGINAL [id number] 11:43:00 [facility] 1995 Sex: F Patient Name: RYAN SETRADA Unit No: [id number] EXAMS: CPT CODE: [id number] US TRANSVAGINAL W/PELVIS 71044 PELVIC ULTRASOUND, 07/04/2020: COMPARISON: None CLINICAL HISTORY: RLQABD PAIN TECHNIQUE: Transabdominal and endovaginal scanning was performed. FINDINGS: The uterus measures 7.6 x 4.1 x 4.8 cm. The endometrial cavity is empty with a thickness of 8 mm. No uterine fibroids were seen. There was a 9 mm nabothian cyst in the cervix. The right ovary measures4.3 x 3.5 x 3.6 cm and contains a 3.1 x 3.0 x 3.1 cm complex cyst, most consistent with hemorrhagiccyst. Doppler flow is demonstrated in the right ovary. The left ovary measures 2.8 x 1.9 x 1.8 cm and appears normal. Doppler flow is demonstrated in the left ovary. No free fluid is evident. IMPRESSION: 3.1 cm complex right ovarian cyst, likely representing hemorrhagic cyst. at 1143 Reported and signed by: Chidi Figueroa MD CC: John Perez MD Technologist: Kelsey Thomas RDMS Probe: [id number] Trnscrbd D/ (1143) [email or web address] Orig Print D/T: S: 07/04/2020 (1146) [facility] NAME: RYAN ESTRDAA Radiology Department PHYS: John Perez MD [address] : 1995 AGE: 24 SEX: F [place] [address] LOC: AugustRAD PHONE #: [phone] EXAM DATE: 07/04/2020 STATUS: REG CLI FAX #: [phone] RAD NO: Page 1 Signed Report Patient Name: RYAN ESTRADA Unit No: [id number] EXAMS: CPT CODE: [id number] US TRANSVAGINAL W/PELVIS 17108 <Continued> [facility] NAME: RYAN ESTRADA Radiology Department PHYS: John Perez MD [address] : 1995 AGE: 24 SEX: F [place] [address] LOC: August[facility] PHONE #: [phone] EXAM DATE: 07/04/2020 STATUS: REG CLI FAX #: [phone] RAD NO: Page 2 Signed ReportCOVID-19 qualitative [id number] 03:19:22 Test Item Value Reference Range Interpretation Comments Interpretation (test code = 5116983) COVID-19 qualitative RT-PCR Not-Detected Not-Detected result (test code = 21923-8) COVID-19 qualitative RT-PCR See link below for (test code = 7070) PDF Lab Report [employer] ZysgzkofIMMR-HdJ-7 (COVID-19) RNA [Presence] in Respiratory specimen by NITISH with probe [id number] 21:18:51 Test Item Value Reference Range Interpretation Comments SARS-CoV-2 (COVID-19) RNA Not detected Not-Detected [Presence] in Respiratory specimen by NITISH with probe detection (test code = 24266-3) [U] XRAY ANKLE MIN 3 VWS RIGHT [id number] 10:11:00Images acquired, not reported on this accession number.[facility][U] XRAY ELBOW MIN 3 VWS LEFT [id number] 10:11:00Images acquired, not reported on this accession number.[facility][U] XRAY ANKLE MIN 3 VWS RIGHT [id number] 10:31:00Images acquired, not reported on this accession number. [facility][U] XRAY ELBOW 2 VWS LEFT [id number] 10:31:00 Images acquired, not reported on this accession number.[facility][U] XRAY ANKLE MIN 3 VWS RIGHT [id number] 10:04:00Images acquired, not reported on this accession number.[facility] [U] XRAY ELBOW MIN 3 VWS LEFT [id number] 10:04:00Images acquired, not reported on this accession number.[facility][U] XRAY ANKLE MIN 3 VWS RIGHT [id number] 09:45:00Images acquired, not reported on this accession number.[facility][U] XRAY ELBOW MIN 3 VWS LEFT [id number] 09:45:00Images acquired, not reported on this accession number. [facility] [id number] 14:38:00Negative *NA*(10/27/18 9:38 AM)[facility] [id number] 14:30:0096[facility] [id number] 14:30:80907Rymkyjsr HermannCHEM YYQEY7610-84-12 14:30:0024 [facility] [id number] 14:30:009.6[facility] PANEL 2018-10-27 14:30:003.3[facility] [id number] 14:30:52441Ghxppqej HermannCHE[facility] [id number] 14:30:008[facility] SDZVH3384-42-78 14:30:000.86[facility] [id number] 14:30:62156Aqaasxsx Hermann[facility] [id number] 14:30:0015.3[facility] HzsxinrLSYKTYWRRBEPJ0782-33-46 14:30:00 Negative *NA*(10/27/18 9:30 AM)[facility] EhfgxpnJXWLYDOTPG0506-57-82 14:30:0068.3 [facility] LfacwsnBYDAWXLKWK4546-24-91 14:30:0025.2[facility]OLOGY 2018-10-27 14:30:005.1[facility] SmdowroKNIZLBMFBZ7779-22-84 14:30:000.9[facility] WxoaxihLRSCFPVZMY0861-98-11 14:30:0010.6[facility] TjetoauPWPFIRZFFO1523-47-55 14:30:000.5[facility] YnvhmojOHVDQLUKIU0973-48-34 14:30:000.8[facility] [id number] 14:30:003.9[facility] EbhxktkDQLBMMDUZI5203-12-81 14:30:000.1 [facility] DynsbszLWQASAIAPH7126-75-18 14:30:000.1[facility]Y 2018-10-27 14:30:0015.6[facility] JcignitRREJOFVJCC7797-41-04 14:30:004.38[facility] GvgrbkeFQANPEATAZ4026-07-40 14:30:0012.7[facility] FbrtzhvSTZOSUCGCO3509-80-51 14:30:0088.1[facility] ZtujoypDIHUEIQOJC0314-77-71 14:30:00 Test Item Value Reference Range Interpretation Comments MCH (test code = MCH) 28.9 pg 27.0-31.0 [facility] BepwndiJECSWLWXDR3862-95-75 14:30:0038.6[facility]ann[facility]MATOLOGY 2018-10-27 14:30:0032.8[facility] BmxsnepRFXLVOEIYT2429-75-31 14:30:007.5[facility] PgkwbcpEYTYKVIFQU9660-50-85 14:30:98069Iroqyqsd AdbnnydSTODMQGBJA6405-57-59 14:30:0015.4[facility]
[2021-01-25] MEDS ORDERED: ONDANSETRON 4 MG/2 ML VIAL ONE (08:26)
[2021-01-25] MEDS ORDERED: NA CHLORIDE 0.9% 1,000 ML ONE ×2 (08:26→09:40)
[2021-01-25 08:40] LABS: Absolute Lymphocytes (CBC) 2.4 K/uL (0.7-4.9); Basophils % 0.9 % (0-1.3); Hematocrit 43.5 % (36.0-45.0); Lymphocytes % 30.5 % (15.3-44.8); MPV 7.1 fL (7.6-11.3); RBC Red Blood Cell Count 5.26 M/uL (3.86-4.86)
[2021-01-25 08:44] LABS: ALT/SGPT 20 U/L (12-78); AST/SGOT 14 U/L (15-37); Albumin 4.2 g/dL (3.4-5.0); Alkaline Phosphatase 60 U/L (45-117); BUN Blood Urea Nitrogen 10 mg/dL (7-18); Bicarbonate 26 mmol/L (21-32); Bilirubin Direct < 0.1 mg/dL (0-0.2); Bilirubin Total 0.3 mg/dL (0.2-1.0); Glucose Level 99 mg/dL (74-106); Lipase 74 U/L (73-393); Potassium 4.4 mmol/L (3.5-5.1); Protein, Total 8.4 g/dL (6.4-8.2); Sodium Level 140 mmol/L (136-145)
[2021-01-25 09:24] LABS: Urine Blood Trace-intact (Negative); Urine Glucose Negative (Negative); Urine Protein Negative (Negative); Urine pH 5.5 (5.0-7.0)
--- NOTE | 2021-01-25 09:47 | EDPHYS ---
Physician Documentation [facility] Name: Corazon Holt Age: 25 yrs Sex: Female : 1995 Arrival Date: 01/25/2021 Time: 07:15 Bed 6 Private MD: JANET Physician Chato Mistry HPI: 01/25 08:54 This 25 yrs old Female presents to ER via Ambulatory with complaints of karol Vomiting. 08:54 The patient presents to the emergency department with nausea, vomiting, abdominal pain, karol of the right lower quadrant and abdomen diffusely. Onset: The symptoms/episode began/occurred just prior to arrival, this morning. Possible causes: unknown. The symptoms are aggravated by nothing. The symptoms are alleviated by nothing. Associated signs and symptoms: The patient has no apparent associated signs or symptoms. Severity of symptoms: At their worst the symptoms were mild moderate in the emergency department the symptoms are unchanged. The patient has experienced similar episodes in the past, multiple times. Historical: - Allergies: 07:51 avoids NSAIDS; iw - Immunization history:: Client reports receiving the 2nd dose of the Covid vaccine. - Social history:: Smoking status: Patient denies any tobacco usage or history of. - Family history:: not pertinent. ROS: 08:54 Constitutional: Negative for fever, chills, and weight loss, Eyes: Negative for injury, karol pain, redness, and discharge, ENT: Negative for injury, pain, and discharge, Neck: Negative for injury, pain, and swelling, Cardiovascular: Negative for chest pain, palpitations, and edema, Respiratory: Negative for shortness of breath, cough, wheezing, and pleuritic chest pain, Back: Negative for injury and pain, : Negative for injury, bleeding, discharge, and swelling, MS/Extremity: Negative for injury and deformity, Skin: Negative for injury, rash, and discoloration, Neuro: Negative for headache, weakness, numbness, tingling, and seizure, Psych: Negative for depression, anxiety, suicide ideation, homicidal ideation, and hallucinations, Allergy/Immunology: Negative for hives, rash, and allergies, Endocrine: Negative for neck swelling, polydipsia, polyuria, polyphagia, and marked weight changes, Hematologic/Lymphatic: Negative for swollen nodes, abnormal bleeding, and unusual bruising. 08:54 Abdomen/GI: Positive for abdominal pain, nausea and vomiting, of the right upper quadrant, left upper quadrant, right lower quadrant and left lower quadrant. Exam: 08:54 Constitutional: This is a well developed, well nourished patient who is awake, alert, karol and in no acute distress. Head/Face: Normocephalic, atraumatic. Eyes: Pupils equal round and reactive to light, extra-ocular motions intact. Lids and lashes normal. Conjunctiva and sclera are non-icteric and not injected. Cornea within normal limits. Periorbital areas with no swelling, redness, or edema. ENT: Nares patent. No nasal discharge, no septal abnormalities noted. Tympanic membranes are normal and external auditory canals are clear. Oropharynx with no redness, swelling, or masses, exudates, or evidence of obstruction, uvula midline. Mucous membranes moist. Neck: Trachea midline, no thyromegaly or masses palpated, and no cervical lymphadenopathy. Supple, full range of motion without nuchal rigidity, or vertebral point tenderness. No Meningismus. Chest/axilla: Normal chest wall appearance and motion. Nontender with no deformity. No lesions are appreciated. Cardiovascular: Regular rate and rhythm with a normal S1 and S2. No gallops, murmurs, or rubs. Normal PMI, no JVD. No pulse deficits. Respiratory: Lungs have equal breath sounds bilaterally, clear to auscultation and percussion. No rales, rhonchi or wheezes noted. No increased work of breathing, no retractions or nasal flaring. Back: No spinal tenderness. No costovertebral tenderness. Full range of motion. Female : Normal external genitalia. Skin: Warm, dry with normal turgor. Normal color with no rashes, no lesions, and no evidence of cellulitis. MS/ Extremity: Pulses equal, no cyanosis. Neurovascular intact. Full, normal range of motion. Neuro: Awake and alert, GCS 15, oriented to person, place, time, and situation. Cranial nerves II-XII grossly intact. Motor strength 5/5 in all extremities. Sensory grossly intact. Cerebellar exam normal. Normal gait. Psych: Awake, alert, with orientation to person, place and time. Behavior, mood, and affect are within normal limits. 08:54 Abdomen/GI: Inspection: abdomen appears normal, Bowel sounds: normal, Palpation: mild abdominal tenderness, in all quadrants, Liver: no appreciated palpable abnormalities, Hernia: not appreciated. Vital Signs: 07:48 BP 119 / 98; Pulse 76; Resp 16 S; Temp 97.2; Pulse Ox 100% on R/A; Weight 58.97 kg; iw Height 5 ft. 10 in. (177.80 cm); Pain 5/10; 07:48 Body Mass Index 18.65 (58.97 kg, 177.80 cm) iw MDM: 07:54 Patient medically screened. [facility] 08:57 Differential diagnosis: Nonspecific abd pain, viral gastroenteritis, gastroenteritis. karol Data reviewed: vital signs, nurses notes, lab test result(s). 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 Counseling: I had a detailed discussion with the patient and/or guardian regarding: the historical points, exam findings, and any diagnostic results supporting the discharge/admit diagnosis, lab results, the need for outpatient follow up, for definitive care, a family practitioner, a heating technician. 01/25 07:56 Order name: Basic Metabolic Panel; Complete Time: 08:53 [facility] 01/25 07:56 Order name: CBC with Diff; Complete Time: 09:45 [facility] 01/25 07:56 Order name: Hepatic Function; Complete Time: 08:53 [facility] 01/25 07:56 Order name: Lipase; Complete Time: 08:53 [facility] 01/25 09:23 Order name: Urine Dipstick-Ancillary; Complete Time: 09:45 EDMS 01/25 09:27 Order name: Urine --Ancillary (enter results) 01/25 07:56 Order name: IV Saline Lock; Complete Time: 08:15 [facility] 01/25 07:56 Order name: Labs collected and sent; Complete Time: 08:15 [facility] 01/25 07:56 Order name: Urine Dipstick-Ancillary (obtain specimen); Complete Time: 09:24 [facility] 01/25 07:56 Order name: Urine Test (obtain specimen); Complete Time: 09:24 [facility] 01/25 09:28 Order name: Urine --Ancillary EDMS Administered Medications: 08:15 Drug: Zofran (Ondansetron) 4 mg Route: IVP; Site: right antecubital; hb 09:00 Follow up: Response: No adverse reaction hb 08:15 Drug: NS 0.9% 1000 ml Route: IV; Rate: 1 bolus; Site: right antecubital; hb 09:23 Drug: NS 0.9% 1000 ml Route: IV; Rate: 1 bolus; Site: right antecubital; hb Disposition Summary: 01/25/21 09:47 Discharge Ordered Location: Home karol Problem: new karol Symptoms: have improved karol Condition: Stable karol Diagnosis - Vomiting karol - Abdominal pain, Generalized karol Followup: karol - With: Private Physician - When: 2 - 3 days - Reason: Recheck today's complaints, Continuance of care, Re-evaluation by your physician Followup: karol - With: - When: 2 - 3 days - Reason: Recheck today's complaints, Continuance of care, Re-evaluation by your physician Discharge Instructions: - Discharge Summary Sheet karol - Abdominal Pain, Adult karol - Abdominal Pain, Adult, [facility] karol - Vomiting, Adult karol Forms: - Medication Reconciliation Form karol - Thank You Letter karol - Antibiotic Education karol - Prescription Opioid Use karol - Work release form eb Prescriptions: - Pepcid 20 mg Oral Tablet - take 1 tablet by ORAL route every 12 hours for 10 days; 20 tablet; Refills: 0, [facility] Product Selection Permitted - Zofran 4 mg Oral Tablet - take 1 tablet by ORAL route every 12 hours As needed; 20 tablet; Refills: 0, [facility] Product Selection Permitted - Levsin 0.125 mg Oral Tablet - take 1 tablet by ORAL route every 6 hours; 28 tablet; Refills: 0, Product karol Selection Permitted - dicyclomine 20 mg Oral Tablet - take 1 tablet by ORAL route 4 times per day; 28 tablet; Refills: 0, Product karol Selection Permitted Signatures: Dispatcher [employer] Chato Maki MD MD cha Williams, Irene, KAYLAN RN Lulu Rosario RN RN hb
--- NOTE | 2021-01-25 09:47 | ER ---
Nurse's Notes [facility] Name: Corazon Holt Age: 25 yrs Sex: Female : 1995 Arrival Date: 01/25/2021 Time: 07:15 Bed 6 Private MD: Diagnosis: Vomiting;Abdominal pain, Generalized Presentation: 01/25 07:48 Chief complaint: Patient states: this morning vomited twice, has hx of hemorrhagic iw ovarian cyst , found ulceration in terminal ileus, sees specialists for chronic issues, has intermittent vomiting episodes and has had chronic diarrhea , is on hyoscyamine, mirtazapine , does not have her home meds with her at this time. Coronavirus screen: vomiting. Ebola Screen: Patient negative for fever greater than or equal to 101.5 degrees Fahrenheit, and additional compatible Ebola Virus Disease symptoms Patient denies exposure to infectious person. Patient denies travel to an Ebola-affected area in the 21 days before illness onset. No symptoms or risks identified at this time. Initial Sepsis Screen: Does the patient meet any 2 criteria? No. Patient's initial sepsis screen is negative. Does the patient have a suspected source of infection? No. Patient's initial sepsis screen is negative. Risk Assessment: Do you want to hurt yourself or someone else? Patient reports no desire to harm self or others. Onset of symptoms was January 25, 2021. 07:48 Method Of Arrival: Ambulatory iw 07:48 Acuity: JORDEN 3 iw Historical: - Allergies: 07:51 avoids NSAIDS; iw - Immunization history:: Client reports receiving the 2nd dose of the Covid vaccine. - Social history:: Smoking status: Patient denies any tobacco usage or history of. - Family history:: not pertinent. Screenin:15 Abuse screen: Denies threats or abuse. Denies injuries from another. Nutritional hb screening: No deficits noted. Tuberculosis screening: No symptoms or risk factors identified. Fall Risk None identified. Assessment: 08:15 General: Appears in no apparent distress. Behavior is calm, cooperative. Pain: Pain hb currently is 5 out of 10 on a pain scale. Neuro: Level of Consciousness is awake, alert, obeys commands, Oriented to person, place, time, situation. Cardiovascular: Patient's skin is warm and dry. Respiratory: Respiratory effort is even, unlabored, Respiratory pattern is regular, symmetrical. GI: Reports lower abdominal pain, nausea, vomiting. : No signs and/or symptoms were reported regarding the genitourinary system. EENT: No signs and/or symptoms were reported regarding the EENT system. Derm: Skin is pink, warm \T\ dry. Musculoskeletal: No signs and/or symptoms reported regarding the musculoskeletal system. 09:24 Reassessment: Patient appears in no apparent distress at this time. Patient and/or hb family updated on plan of care and expected duration. Pain level reassessed. Patient is alert, oriented x 3, equal unlabored respirations, skin warm/dry/pink. Vital Signs: 07:48 BP 119 / 98; Pulse 76; Resp 16 S; Temp 97.2; Pulse Ox 100% on R/A; Weight 58.97 kg; iw Height 5 ft. 10 in. (177.80 cm); Pain 5/10; 07:48 Body Mass Index 18.65 (58.97 kg, 177.80 cm) iw ED Course: 07:15 Patient arrived in ED. as 07:51 Triage completed. iw 07:52 Arm band placed on. iw 07:54 Chato Mistry MD is Attending Physician. karol 08:15 Patient has correct armband on for positive identification. Call light in reach. Side hb rails up X 1. 08:15 Initial lab(s) drawn, by me, by EMS personnel. Inserted saline lock: 20 gauge in right em1 antecubital area, using aseptic technique. Blood collected. 09:10 Lulu Rosario RN is Primary Nurse. hb 09:46 Mica Villegas MD is Referral Physician. karol 10:15 IV discontinued, bleeding controlled, Pressure dressing applied. mb4 10:25 No provider procedures requiring assistance completed. hb 10:25 IV discontinued, intact, bleeding controlled. hb Administered Medications: 08:15 Drug: Zofran (Ondansetron) 4 mg Route: IVP; Site: right antecubital; hb 09:00 Follow up: Response: No adverse reaction hb 08:15 Drug: NS 0.9% 1000 ml Route: IV; Rate: 1 bolus; Site: right antecubital; hb 09:23 Drug: NS 0.9% 1000 ml Route: IV; Rate: 1 bolus; Site: right antecubital; hb Outcome: 09:47 Discharge ordered by . karol 10:25 Discharged to home ambulatory. hb 10:25 Condition: stable 10:25 Discharge instructions given to patient, Instructed on discharge instructions, follow up and referral plans. medication usage, Demonstrated understanding of instructions, follow-up care, medications, Prescriptions given X 3. 10:28 Patient left the ED. hb Signatures: Chato Mistry MD MD cha Martinez, Brigid Albarran RN RN [place] Albrecht em1 Lulu Rosario RN RN Staci Rosario mb4
[2021-01-25 10:34] VITALS: BP 119/98; TEMP 97.2; O2SAT 100
== END 2021-01-25 10:28 | disposition home or self-care (01) ==
LOC: ER 07:13
DX: R10.84 Generalized abdominal pain (principal)
CPT/HCPCS: 85025; 80048; 36415; 81025; 80076; 81003; 83690; 96374; 99284; J7030 ×2; J2405